=== PATIENT | female | born 1930 | race Asian ===

== ENCOUNTER 2017-01-03 18:46 | Emergency (ER) | payer MEDICARE, OTHER ==
[~2017-01-03] VITALS: Ht 152.4 cm; Wt 63.6 kg
[~2017-01-03 18:46] MED LIST: ACET-784 PO; ASPI-556 PO; CARV12 PO; DOCU100C98 PO; DOXE4VIA IV; EPOE3000 SQ; FOLI0.8T22 PO; GUAIFDM PO; LEVO250 PO; LEVO50TA11 PO; NITR.4 SL; SEVEC800 PO; XALA2.5OS OU
[2017-01-03] MEDS ORDERED: CINA90TA PO (19:05)
[2017-01-03] MEDS ORDERED: BIMA12.5OS OU (19:05)
[2017-01-03 20:09] LABS: BASOPHILS % (AUTO) 0.4 % (0.0-2.0); EOSINOPHILS % (AUTO) 1.2 % (1.0-6.0); HEMATOCRIT 36.1 % (36-46); HEMOGLOBIN 11.2 g/dL (12.0-16.0); LYMPHOCYTES # (AUTO) 1.5 K/uL (1.0-4.8); LYMPHOCYTES % (AUTO) 19.1 % (22.0-44.0); MEAN CORPUSCULAR HEMOGLOBIN 23.4 pg (26.0-34.0); MEAN CORPUSCULAR VOLUME 75 fL (80-100); MONOCYTES # (AUTO) 0.8 K/uL (0.1-1.0); MONOCYTES % (AUTO) 10.6 % (2.0-9.0); NEUTROPHILS # (AUTO) 5.4 K/uL (1.8-7.7); NEUTROPHILS % (AUTO) 68.7 % (40.0-70.0); PLATELET COUNT (AUTO) 176 K/uL (150-450); RED BLOOD CELL COUNT(AUTO) 4.78 MIL/uL (4.00-5.20); RED CELL DISTRIBUTION WIDTH 15.9 % (11.5-14.5); WHITE BLOOD COUNT (AUTO) 7.8 K/uL (4.5-11.0)
[2017-01-03 20:23] LABS: INR 1.1 (0.9-1.1); PROTHROMBIN TIME 11.2 SEC (9.4-11.6)
[2017-01-03 20:30] LABS: B-TYPE NATRIURETIC PEPTIDE 2730 pg/mL (0-100)
[2017-01-03 20:31] LABS: ANION GAP 9 mmol/L (8-16); CALCIUM, TOTAL 8.6 mg/dL (8.8-10.5); CARBON DIOXIDE 33 mmol/L (22-29); CHLORIDE 93 mmol/L (98-107); CREATININE 5.83 mg/dL (0.60-1.30); GLOMERULAR FILTR. RATE CALC 7 mL/min (>60); POTASSIUM 3.7 mmol/L (3.5-5.1); SODIUM SERUM 135 mmol/L (136-145); UREA NITROGEN, BLOOD 33 mg/dL (7-18)
[2017-01-03 20:37] LABS: ALANINE AMINOTRANSFERASE 16 U/L (12-78); ALBUMIN 3.4 g/dL (3.4-5.0); ASPARTATE AMINOTRANSFERASE 19 U/L (15-37); BILIRUBIN,TOTAL 0.6 mg/dL (0.1-1.0); CREATINE KINASE, TOTAL 43 U/L (26-192); TOTAL PROTEIN, SERUM 7.2 g/dL (6.4-8.2)
[2017-01-03 20:58] LABS: RBC MORPHOLOGY COMMENT ABNORMAL RBC MORPH
[2017-01-03] MEDS ORDERED: CefTRIAXone 1 GM/DEXTROSE 50 ML IV ONE (21:00)
[2017-01-03 21:37] VITALS: BP 155/78
== END 2017-01-03 21:49 | disposition home or self-care (01) ==
LOC: EMS 18:48
DX: J40 Bronchitis, not specified as acute or chronic (principal); N18.6 End stage renal disease; I12.0 Hypertensive chronic kidney disease with stage 5 chronic kidney disease or end stage renal disease; E78.00 Pure hypercholesterolemia, unspecified; Z99.2 Dependence on renal dialysis; Z79.82 Long term (current) use of aspirin
CPT/HCPCS: 36415; 71010; 80053; 82550; 83880; 84484; 85025; 85610; 85730; 87040; 93005; 96365; 99285; J0696; 99284

== ENCOUNTER → 2017-02-03 | Outpatient (CLI) | payer MEDICARE, OTHER ==
[~2017-02-03] VITALS: Ht 149.9 cm; Wt 56.5 kg
[~2017-02-03] MED LIST changes: +BIMA12.5OS OU; +CINA90TA PO; +FOLI0.8T2 PO; +HYDR25TA84 PO; -LEVO250 PO; -XALA2.5OS OU
[2017-02-03 11:05] VITALS: BP 140/79
== END | disposition home or self-care (01) ==
LOC: SRCNTR 10:47
PROVIDERS: ATTEND Internal Medicine Clinical Cardiac Electrophysiology
DX: Z45.018 Encounter for adjustment and management of other part of cardiac pacemaker (principal); I25.10 Atherosclerotic heart disease of native coronary artery without angina pectoris; I48.91 Unspecified atrial fibrillation; I12.9 Hypertensive chronic kidney disease with stage 1 through stage 4 chronic kidney disease, or unspecified chronic kidney disease; N18.9 Chronic kidney disease, unspecified
CPT/HCPCS: G0463

== ENCOUNTER 2017-02-19 08:07 | Day surgery (SDC) | payer MEDICARE, OTHER ==
[~2017-02-19] VITALS: Ht 152.4 cm; Wt 56.0 kg
[~2017-02-19 08:07] MED LIST changes: -FOLI0.8T2 PO; -GUAIFDM PO; +HYDR25 PO; -HYDR25TA84 PO; +SODIUM CHLORIDE 0.9% 1,000 ML IV ONE
[2017-02-19 09:05] LABS: BASOPHILS % (AUTO) 0.2 % (0.0-2.0); HEMATOCRIT 35.6 % (36-46); HEMOGLOBIN 11.3 g/dL (12.0-16.0); LYMPHOCYTES # (AUTO) 1.2 K/uL (1.0-4.8); LYMPHOCYTES % (AUTO) 25.2 % (22.0-44.0); MEAN CORPUSCULAR HEMOGLOBIN 24.1 pg (26.0-34.0); MEAN CORPUSCULAR HGB CONC 31.6 G/dL (31.0-37.0); MEAN CORPUSCULAR VOLUME 76 fL (80-100); MONOCYTES # (AUTO) 0.5 K/uL (0.1-1.0); MONOCYTES % (AUTO) 11.4 % (2.0-9.0); NEUTROPHILS % (AUTO) 62.2 % (40.0-70.0); PLATELET COUNT (AUTO) 167 K/uL (150-450); RED BLOOD CELL COUNT(AUTO) 4.67 MIL/uL (4.00-5.20); RED CELL DISTRIBUTION WIDTH 16.5 % (11.5-14.5); WHITE BLOOD COUNT (AUTO) 4.8 K/uL (4.5-11.0)
[2017-02-19 09:23] LABS: ALBUMIN 3.8 g/dL (3.4-5.0); BILIRUBIN,TOTAL 0.6 mg/dL (0.1-1.0); CALCIUM, TOTAL 9.1 mg/dL (8.8-10.5); CREATININE 5.03 mg/dL (0.60-1.30); MAGNESIUM 2.2 mg/dL (1.80-2.40); POTASSIUM 4.2 mmol/L (3.5-5.1); TOTAL PROTEIN, SERUM 7.3 g/dL (6.4-8.2)
[2017-02-19] MEDS ORDERED: SODIUM CHLORIDE 0.9% 1,000 ML IV ONE (09:30)
[2017-02-19] MEDS ORDERED: LIDOCAINE HCL/PF 1% 30 ML VIAL ONE (10:12)
[2017-02-19] MEDS ORDERED: SODIUM BICARBONATE 50 MEQ/50 ML VIAL ONE (10:13)
[2017-02-19 10:35] VITALS: BP 207/84
[2017-02-19] MEDS ORDERED: IOHEXOL 300 MG/ML 50 ML VIAL ONE (11:16)
[2017-02-19] MEDS ORDERED: LIDOCAINE 1% 30 ML/SOD BICARB 8.4% 4 ML SQ ONE (11:22)
[2017-02-19] MEDS ORDERED: BUPIVACAINE LIPOSOME/PF 1.3%-13.3MG/ML SUSPENSION 10 ML VIAL INJ ONE (11:30)
[2017-02-19] MEDS ORDERED: PROPOFOL 1% 20 ML VIAL IVP ONE (12:00)
[2017-02-19] MEDS ORDERED: FentaNYL CITRATE-PF 100 MCG/2 ML VIAL IVP ONE (12:00)
[2017-02-19] MEDS ORDERED: PHENYLEPHRINE HCL 10 MG/ML VIAL IVP ONE (12:00)
[2017-02-19] MEDS ORDERED: DiphenhydrAMINE HCL 50 MG/ML VIAL IVP ONE (12:00)
[2017-02-19 12:27] VITALS: BP 223/106
[2017-02-19] MEDS ORDERED: CeFAZolin 1 GM/DEXTROSE 50 ML IV ONE ×2 (14:26→15:00)
== END 2017-02-19 16:30 | disposition home or self-care (01) ==
LOC: CATHLAB 08:07
PROVIDERS: ATTEND Internal Medicine Clinical Cardiac Electrophysiology
DX: Z45.02 Encounter for adjustment and management of automatic implantable cardiac defibrillator (principal); I12.0 Hypertensive chronic kidney disease with stage 5 chronic kidney disease or end stage renal disease; N18.6 End stage renal disease; D63.1 Anemia in chronic kidney disease; H40.9 Unspecified glaucoma; Z98.890 Other specified postprocedural states; Z99.2 Dependence on renal dialysis; Z87.09 Personal history of other diseases of the respiratory system; Z98.42 Cataract extraction status, left eye; Z98.41 Cataract extraction status, right eye
CPT/HCPCS: 33263; 36415; 80053; 83735; 85025; 85610; 85730; 88300; 93005; 93640; C1721; J0690; J1200; J2370; J2704; J3010; J3490 ×2; J7030; 33240; Q9967

== ENCOUNTER → 2017-02-24 | Outpatient (CLI) | payer MEDICARE, OTHER ==
[~2017-02-24] VITALS: Ht 149.9 cm; Wt 56.0 kg
[~2017-02-24] MED LIST changes: -SODIUM CHLORIDE 0.9% 1,000 ML IV ONE
[2017-02-24 11:20] VITALS: BP 129/71
== END | disposition home or self-care (01) ==
LOC: SRCNTR 11:08
PROVIDERS: ATTEND Internal Medicine Clinical Cardiac Electrophysiology
DX: Z45.02 Encounter for adjustment and management of automatic implantable cardiac defibrillator (principal); I25.10 Atherosclerotic heart disease of native coronary artery without angina pectoris; I10 Essential (primary) hypertension; I48.91 Unspecified atrial fibrillation; F41.9 Anxiety disorder, unspecified; E78.00 Pure hypercholesterolemia, unspecified; N19 Unspecified kidney failure; Z95.810 Presence of automatic (implantable) cardiac defibrillator
CPT/HCPCS: G0463

== ENCOUNTER → 2017-03-03 | Outpatient (CLI) | payer MEDICARE, OTHER ==
[~2017-03-03] MED LIST changes: +FOLI0.8T2 PO
[2017-03-03 11:23] VITALS: BP 144/86
== END | disposition home or self-care (01) ==
LOC: SRCNTR 11:19
PROVIDERS: ATTEND Internal Medicine Clinical Cardiac Electrophysiology
DX: Z45.02 Encounter for adjustment and management of automatic implantable cardiac defibrillator (principal); I11.0 Hypertensive heart disease with heart failure; I50.9 Heart failure, unspecified; I48.91 Unspecified atrial fibrillation; N19 Unspecified kidney failure; E78.5 Hyperlipidemia, unspecified; T14.8 Other injury of unspecified body region; I25.10 Atherosclerotic heart disease of native coronary artery without angina pectoris; E78.00 Pure hypercholesterolemia, unspecified
CPT/HCPCS: G0463

== ENCOUNTER → 2017-03-10 | Outpatient (CLI) | payer MEDICARE, OTHER ==
[~2017-03-10] MED LIST changes: -HYDR25 PO; +HYDR25TA84 PO
[2017-03-10 11:48] VITALS: BP 114/57
== END | disposition home or self-care (01) ==
LOC: SRCNTR 11:20
PROVIDERS: ATTEND Internal Medicine Clinical Cardiac Electrophysiology
DX: Z45.02 Encounter for adjustment and management of automatic implantable cardiac defibrillator (principal); I11.0 Hypertensive heart disease with heart failure; I50.9 Heart failure, unspecified; I48.91 Unspecified atrial fibrillation; E78.5 Hyperlipidemia, unspecified; N19 Unspecified kidney failure; T14.8 Other injury of unspecified body region
CPT/HCPCS: G0463

== ENCOUNTER → 2017-03-19 | Outpatient (CLI) | payer MEDICARE, OTHER ==
[~2017-03-19] VITALS: Ht 149.9 cm; Wt 55.5 kg
[~2017-03-19] MED LIST changes: +ACET-2635 PO; +AMLO-511 PO; +AMLO1CAP5 PO; +AMLO5TAB66 PO; +AMOX500C2 PO; +ATOR10TA84 PO; +ATOR20TA86 PO; +BENA10TA3 PO; +BISA10SU61 PR; +BUME1TAB12 PO; +CALC-590 PO; +CALC500T62 PO; +CARV40CR PO; +CEPH250 PO; +CLON0.1T PO; +ESOM20CA31 PO; +FERR324T9 PO; +FOLI1CAP16 PO; +FOLI1TAB15 PO; +GUAIFDM PO; +HYDR-3965 PO; +HYDR-4173 PO; +LEVO250 PO; +LORA-366 PO; +LORA10TA60 PO; +MEGE40TA22 PO; +NITR0.4T SL; +OMEG1CAP20 PO; +OMEG300C3 PO; +PANT40TA25 PO; +PROMVCC120 PO; +SEVE400 GT; +WARF3TAB29 PO; +XALA2.5OS OU; +ZOLP10 PO; +[UNRECOGNIZED DRUG - CODE] IJ; +[UNRECOGNIZED DRUG - CODE] IV; +[UNRECOGNIZED DRUG - CODE] PO
[2017-03-19 14:52] VITALS: BP 161/88
== END | disposition home or self-care (01) ==
LOC: SRCNTR 14:45
PROVIDERS: ATTEND Internal Medicine Cardiovascular Disease
DX: I13.2 Hypertensive heart and chronic kidney disease with heart failure and with stage 5 chronic kidney disease, or end stage renal disease (principal); N18.6 End stage renal disease; I50.9 Heart failure, unspecified; I48.0 Paroxysmal atrial fibrillation; Z95.810 Presence of automatic (implantable) cardiac defibrillator
CPT/HCPCS: G0463

== ENCOUNTER → 2017-03-24 | Outpatient (CLI) | payer MEDICARE, OTHER ==
[~2017-03-24] VITALS: Ht 149.9 cm; Wt 55.5 kg
[~2017-03-24] MED LIST changes: -ACET-2635 PO; -AMLO-511 PO; -AMLO1CAP5 PO; -AMLO5TAB66 PO; -AMOX500C2 PO; -ATOR10TA84 PO; -ATOR20TA86 PO; -BENA10TA3 PO; -BISA10SU61 PR; -BUME1TAB12 PO; -CALC-590 PO; -CALC500T62 PO; -CARV40CR PO; -CEPH250 PO; -CLON0.1T PO; -ESOM20CA31 PO; -FERR324T9 PO; -FOLI1CAP16 PO; -FOLI1TAB15 PO; -GUAIFDM PO; -HYDR-3965 PO; -HYDR-4173 PO; -LEVO250 PO; -LORA-366 PO; -LORA10TA60 PO; -MEGE40TA22 PO; -NITR0.4T SL; -OMEG1CAP20 PO; -OMEG300C3 PO; -PANT40TA25 PO; -PROMVCC120 PO; -SEVE400 GT; -WARF3TAB29 PO; -XALA2.5OS OU; -ZOLP10 PO; -[UNRECOGNIZED DRUG - CODE] IJ; -[UNRECOGNIZED DRUG - CODE] IV; -[UNRECOGNIZED DRUG - CODE] PO
[2017-03-24 14:30] VITALS: BP 149/82
== END | disposition home or self-care (01) ==
LOC: SRCNTR 14:29
PROVIDERS: ATTEND Internal Medicine Clinical Cardiac Electrophysiology
DX: Z45.02 Encounter for adjustment and management of automatic implantable cardiac defibrillator (principal); I11.0 Hypertensive heart disease with heart failure; I50.9 Heart failure, unspecified; E78.5 Hyperlipidemia, unspecified; I48.91 Unspecified atrial fibrillation; E78.00 Pure hypercholesterolemia, unspecified; I25.10 Atherosclerotic heart disease of native coronary artery without angina pectoris; F41.9 Anxiety disorder, unspecified
CPT/HCPCS: G0463

== ENCOUNTER → 2017-03-31 | Outpatient (CLI) | payer MEDICARE, OTHER ==
[2017-03-31 14:50] VITALS: BP 151/81
== END | disposition home or self-care (01) ==
LOC: SRCNTR 14:32
PROVIDERS: ATTEND Internal Medicine Clinical Cardiac Electrophysiology
DX: Z45.02 Encounter for adjustment and management of automatic implantable cardiac defibrillator (principal)
CPT/HCPCS: G0463

== ENCOUNTER → 2017-04-07 | Outpatient (CLI) | payer MEDICARE, OTHER ==
[2017-04-07 15:22] VITALS: BP 147/81
== END | disposition home or self-care (01) ==
LOC: SRCNTR 14:45
PROVIDERS: ATTEND Internal Medicine Clinical Cardiac Electrophysiology
DX: Z45.02 Encounter for adjustment and management of automatic implantable cardiac defibrillator (principal)
CPT/HCPCS: G0463

== ENCOUNTER → 2017-04-23 | Outpatient (CLI) | payer MEDICARE, OTHER | END | disposition home or self-care (01) | LOC: RADPV 15:34 | PROVIDERS: ATTEND Orthopaedic Surgery | DX: M17.0 Bilateral primary osteoarthritis of knee (principal) ==

== ENCOUNTER → 2017-06-30 | Outpatient (CLI) | payer MEDICARE, OTHER ==
[~2017-06-30] MED LIST changes: +ACET1TAB12 PO; +BRIM15OS OU; +PROMVCC5L PO
[2017-06-30 15:25] VITALS: BP 139/82
== END | disposition home or self-care (01) ==
LOC: SRCNTR 14:58
PROVIDERS: ATTEND Internal Medicine Clinical Cardiac Electrophysiology
DX: Z45.02 Encounter for adjustment and management of automatic implantable cardiac defibrillator (principal); I10 Essential (primary) hypertension; I25.10 Atherosclerotic heart disease of native coronary artery without angina pectoris; N19 Unspecified kidney failure; I48.91 Unspecified atrial fibrillation; Z95.810 Presence of automatic (implantable) cardiac defibrillator
CPT/HCPCS: 93289; G0463; 93288

== ENCOUNTER → 2017-07-16 | Outpatient (CLI) | payer MEDICARE, OTHER ==
[~2017-07-16] VITALS: Ht 149.9 cm; Wt 54.0 kg
[2017-07-16 14:23] VITALS: BP 118/68
== END | disposition home or self-care (01) ==
LOC: SRCNTR 14:12
PROVIDERS: ATTEND Internal Medicine Cardiovascular Disease
DX: I25.10 Atherosclerotic heart disease of native coronary artery without angina pectoris (principal); I13.2 Hypertensive heart and chronic kidney disease with heart failure and with stage 5 chronic kidney disease, or end stage renal disease; I48.2 Chronic atrial fibrillation; J44.9 Chronic obstructive pulmonary disease, unspecified; I50.9 Heart failure, unspecified; N18.6 End stage renal disease; Z79.01 Long term (current) use of anticoagulants; Z79.899 Other long term (current) drug therapy; Z99.2 Dependence on renal dialysis; Z95.810 Presence of automatic (implantable) cardiac defibrillator
CPT/HCPCS: 93005; G0463

== ENCOUNTER → 2017-07-23 | Outpatient (CLI) | payer MEDICARE, OTHER ==
[~2017-07-23] MED LIST changes: -FOLI0.8T22 PO
== END | disposition home or self-care (01) ==
LOC: RADPV 13:06
PROVIDERS: ATTEND Internal Medicine Cardiovascular Disease
DX: I08.1 Rheumatic disorders of both mitral and tricuspid valves (principal); I51.7 Cardiomegaly; I70.0 Atherosclerosis of aorta; Z95.0 Presence of cardiac pacemaker
CPT/HCPCS: 93306

== ENCOUNTER → 2017-08-11 | Outpatient (CLI) | payer MEDICARE, OTHER ==
[2017-08-11 14:26] VITALS: BP 115/63
== END | disposition home or self-care (01) ==
LOC: SRCNTR 13:56
PROVIDERS: ATTEND Internal Medicine Cardiovascular Disease
DX: I12.0 Hypertensive chronic kidney disease with stage 5 chronic kidney disease or end stage renal disease (principal); N18.6 End stage renal disease; I25.10 Atherosclerotic heart disease of native coronary artery without angina pectoris; I34.0 Nonrheumatic mitral (valve) insufficiency; I48.2 Chronic atrial fibrillation; J44.9 Chronic obstructive pulmonary disease, unspecified; Z99.2 Dependence on renal dialysis; Z95.810 Presence of automatic (implantable) cardiac defibrillator; Z79.82 Long term (current) use of aspirin
CPT/HCPCS: G0463

== ENCOUNTER → 2017-10-13 | Outpatient (CLI) | payer MEDICARE, OTHER ==
[~2017-10-13] MED LIST changes: +DONE5TAB5 PO
[2017-10-13 14:01] VITALS: BP 117/95
== END | disposition home or self-care (01) ==
LOC: SRCNTR 13:53
PROVIDERS: ATTEND Internal Medicine Cardiovascular Disease
DX: I12.0 Hypertensive chronic kidney disease with stage 5 chronic kidney disease or end stage renal disease (principal); N18.6 End stage renal disease; J44.9 Chronic obstructive pulmonary disease, unspecified; I48.2 Chronic atrial fibrillation; I25.10 Atherosclerotic heart disease of native coronary artery without angina pectoris; I42.9 Cardiomyopathy, unspecified; Z79.82 Long term (current) use of aspirin; Z95.810 Presence of automatic (implantable) cardiac defibrillator; Z99.2 Dependence on renal dialysis
CPT/HCPCS: G0463

== ENCOUNTER → 2017-11-03 | Outpatient (CLI) | payer MEDICARE, OTHER ==
[~2017-11-03] MED LIST changes: +CARV6 PO; +LEVO100 PO; -PROMVCC5L PO; +ZOLP5 PO
[2017-11-03 14:54] VITALS: BP 97/59
== END | disposition home or self-care (01) ==
LOC: SRCNTR 14:37
PROVIDERS: ATTEND Internal Medicine Clinical Cardiac Electrophysiology
DX: Z45.02 Encounter for adjustment and management of automatic implantable cardiac defibrillator (principal); I25.10 Atherosclerotic heart disease of native coronary artery without angina pectoris; I10 Essential (primary) hypertension; N19 Unspecified kidney failure; I48.91 Unspecified atrial fibrillation; E78.00 Pure hypercholesterolemia, unspecified; F41.9 Anxiety disorder, unspecified; Z79.82 Long term (current) use of aspirin
CPT/HCPCS: G0463

== ENCOUNTER → 2017-12-10 | Outpatient (CLI) | payer MEDICARE, OTHER ==
[~2017-12-10] MED LIST changes: -CARV6 PO; -LEVO100 PO; -ZOLP5 PO
[2017-12-10 15:36] VITALS: BP 123/67
== END | disposition home or self-care (01) ==
LOC: SRCNTR 15:28
PROVIDERS: ATTEND Internal Medicine Cardiovascular Disease
DX: I12.0 Hypertensive chronic kidney disease with stage 5 chronic kidney disease or end stage renal disease (principal); N18.6 End stage renal disease; J44.9 Chronic obstructive pulmonary disease, unspecified; I48.2 Chronic atrial fibrillation; I25.10 Atherosclerotic heart disease of native coronary artery without angina pectoris; Z79.82 Long term (current) use of aspirin; Z99.2 Dependence on renal dialysis
CPT/HCPCS: G0463

== ENCOUNTER 2018-01-07 15:31 | Inpatient (IN) | payer MEDICARE, OTHER ==
[~2018-01-07] VITALS: Ht 149.9 cm; Wt 53.1 kg
[~2018-01-07 15:31] MED LIST changes: -CINA90TA PO; -SEVEC800 PO
[2018-01-07] MEDS ORDERED: ZOLP5 PO (15:37)
[2018-01-07] MEDS ORDERED: SEVEC800 PO (15:37)
[2018-01-07 16:30] LABS: BASOPHILS % (AUTO) 0.8 % (0.0-2.0); EOSINOPHILS % (AUTO) 1.6 % (1.0-6.0); HEMATOCRIT 36.5 % (36-46); HEMOGLOBIN 11.6 g/dL (12.0-16.0); LYMPHOCYTES # (AUTO) 1.2 K/uL (1.0-4.8); LYMPHOCYTES % (AUTO) 23.2 % (22.0-44.0); MEAN CORPUSCULAR HEMOGLOBIN 23.8 pg (26.0-34.0); MEAN CORPUSCULAR HGB CONC 31.8 G/dL (31.0-37.0); MEAN CORPUSCULAR VOLUME 75 fL (80-100); MONOCYTES # (AUTO) 0.5 K/uL (0.1-1.0); NEUTROPHILS # (AUTO) 3.2 K/uL (1.8-7.7); NEUTROPHILS % (AUTO) 63.4 % (40.0-70.0); PLATELET COUNT (AUTO) 104 K/uL (150-450); RED BLOOD CELL COUNT(AUTO) 4.87 MIL/uL (4.00-5.20); RED CELL DISTRIBUTION WIDTH 15.4 % (11.5-14.5)
[2018-01-07 16:39] LABS: INR 1.1 (0.9-1.1); PROTHROMBIN TIME 11.4 SEC (9.4-11.6)
[2018-01-07 16:43] LABS: LACTIC ACID 1.4 mmol/L (0.4-2.0)
[2018-01-07 16:46] LABS: ALBUMIN 3.1 g/dL (3.4-5.0); CALCIUM, TOTAL 9.7 mg/dL (8.8-10.5); CREATININE 4.55 mg/dL (0.60-1.30); POTASSIUM 3.7 mmol/L (3.5-5.1); TOTAL PROTEIN, SERUM 7.2 g/dL (6.4-8.2)
[2018-01-07 16:55] LABS: INFLUENZA TYPE A NEGATIVE FOR TYPE A (NEGATIVE); INFLUENZA TYPE B NEGATIVE FOR TYPE B (NEGATIVE)
[2018-01-07 17:28] LABS: APPEARANCE,URINE TURBID (CLEAR); GLUCOSE, URINE (UA) NEGATIVE (NEGATIVE); KETONES,URINE NEGATIVE (NEGATIVE); LEUKOCYTE ESTERASE ,URINE LARGE (NEGATIVE); NITRATE,URINE NEGATIVE (NEGATIVE); OCCULT BLOOD,URINE LARGE (NEGATIVE); PH,URINE 7.5 (5.0-8.0); PROTEIN,URINE SEE CONFIRM (NEGATIVE); UROBILINOGEN,URINE 0.2 mg/dL (<=1.0)
[2018-01-07 17:30] LABS: BILIRUBIN,URINE PRELIM. POSITIVE (NEGATIVE)
[2018-01-07 17:42] LABS: SULFOSALICYLIC ACID,URINE 4+ (Negative)
[2018-01-07 17:43] LABS: BACTERIA,URINE Moderate /HPF (None Seen); SQUAMOUS EPITHELIAL CELL,UR Few /LPF (None Seen); WBC,URINE Full Field /HPF (0-5)
[2018-01-07] MEDS ORDERED: CefTRIAXone SODIUM 1 GM in DEXTROSE 5%-WATER 10 ML IV ONE (17:45)
[2018-01-07] MEDS ORDERED: ACETAMINOPHEN 325 MG TABLET PO PRN ×2 (18:30→20:00)
[2018-01-07] MEDS ORDERED: ONDANSETRON HCL 4 MG/2 ML VIAL IVP PRN ×2 (18:30→20:15)
[2018-01-07] MEDS: ASPIRIN 81 MG EC TABLET PO SCH (20:00)
[2018-01-07] MEDS ORDERED: HydrALAZINE HCL 25 MG TABLET PO PRN (20:00)
[2018-01-07] MEDS ORDERED: 0.9% SODIUM CHLORIDE 10 ML SYRINGE IVP PRN (20:15)
[2018-01-07 20:22] VITALS: BP 117/72
[2018-01-07] MEDS: NITROGLYCERIN 0.4 MG SUBLINGUAL TABLET #25 SL PRN (20:51)
[2018-01-07] MEDS: DOCUSATE SODIUM 100 MG CAPSULE PO SCH (20:52)
[2018-01-07] MEDS: PANTOPRAZOLE SODIUM 40 MG/VIAL IVP SCH (20:52)
[2018-01-07] MEDS: CARVEDILOL 6.25 MG TABLET PO SCH (20:53)
[2018-01-07] MEDS: HEPARIN SODIUM,PORCINE 5,000 UNITS/ML VIAL SQ SCH (20:53)
[2018-01-07] MEDS: BIMATOPROST 0.01% 2.5 ML OPHTHALMIC SOLUTION OU SCH (21:44)
[2018-01-07] MEDS: DONEPEZIL HCL 5 MG TABLET PO SCH (21:44)
[2018-01-07] MEDS: BRIMONIDINE TARTRATE 0.1% 5 ML OPHTHALMIC SOLUTION OU SCH (21:44)
[2018-01-08] VITALS (7 sets, daily range): BP systolic 94–114; BP diastolic 57–69
[2018-01-08 06:24] LABS: BASOPHILS % (AUTO) 0.7 % (0.0-2.0); EOSINOPHILS % (AUTO) 2.4 % (1.0-6.0); HEMATOCRIT 33.3 % (36-46); HEMOGLOBIN 10.6 g/dL (12.0-16.0); LYMPHOCYTES # (AUTO) 1.2 K/uL (1.0-4.8); LYMPHOCYTES % (AUTO) 27.6 % (22.0-44.0); MEAN CORPUSCULAR HEMOGLOBIN 23.9 pg (26.0-34.0); MEAN CORPUSCULAR HGB CONC 31.8 G/dL (31.0-37.0); MEAN CORPUSCULAR VOLUME 75 fL (80-100); MONOCYTES # (AUTO) 0.6 K/uL (0.1-1.0); NEUTROPHILS # (AUTO) 2.5 K/uL (1.8-7.7); NEUTROPHILS % (AUTO) 56.3 % (40.0-70.0); PLATELET COUNT (AUTO) 95 K/uL (150-450); RED BLOOD CELL COUNT(AUTO) 4.42 MIL/uL (4.00-5.20); RED CELL DISTRIBUTION WIDTH 14.9 % (11.5-14.5)
[2018-01-08 06:52] LABS: CALCIUM, TOTAL 9.4 mg/dL (8.8-10.5); CREATININE 5.23 mg/dL (0.60-1.30); MAGNESIUM 2.1 mg/dL (1.80-2.40); POTASSIUM 3.8 mmol/L (3.5-5.1)
[2018-01-08] MEDS: LEVOTHYROXINE SODIUM 50 MCG TABLET PO SCH (06:53)
[2018-01-08] MEDS: HEPARIN SODIUM,PORCINE 5,000 UNITS/ML VIAL SQ SCH ×2 (08:05→20:17)
[2018-01-08] MEDS: PANTOPRAZOLE SODIUM 40 MG/VIAL IVP SCH (08:05)
[2018-01-08] MEDS: SEVELAMER CARBONATE 800 MG TABLET PO SCH ×3 (08:05→18:00)
[2018-01-08] MEDS: BRIMONIDINE TARTRATE 0.1% 5 ML OPHTHALMIC SOLUTION OU SCH ×2 (08:06→20:18)
[2018-01-08] MEDS: DOCUSATE SODIUM 100 MG CAPSULE PO SCH ×2 (08:06→20:17)
[2018-01-08] MEDS: ASPIRIN 81 MG EC TABLET PO SCH (08:07)
[2018-01-08] MEDS: CARVEDILOL 6.25 MG TABLET PO SCH ×2 (09:00→20:18)
[2018-01-08] MEDS ORDERED: SODIUM CHLORIDE 0.9% 2,000 ML IV ONE (11:58)
[2018-01-08] MEDS ORDERED: CARV6 PO (11:59)
[2018-01-08] MEDS ORDERED: LEVO100 PO (11:59)
[2018-01-08] MEDS ORDERED: *CLINICAL-RX DOSING [ENTER DRUG IN COMMENTS] CLINICAL ONE (12:15)
[2018-01-08] MEDS ORDERED: SODIUM CHLORIDE 0.9% 100 ML ONE (15:42)
[2018-01-08] MEDS: AZITHROMYCIN 500 MG/NS 250 ML IV SCH (15:48)
[2018-01-08] MEDS: DONEPEZIL HCL 5 MG TABLET PO SCH (17:04)
[2018-01-08] MEDS: PROMETHAZINE HCL/CODEINE 6.25-10MG/5ML SYRUP UDCUP PO PRN (17:42)
[2018-01-08] MEDS ORDERED: CefTRIAXone SODIUM 1 GM in DEXTROSE 5%-WATER 10 ML IV SCH (18:00)
[2018-01-08] MEDS: BIMATOPROST 0.01% 2.5 ML OPHTHALMIC SOLUTION OU SCH (20:18)
[2018-01-09] MEDS: ZOLPIDEM TARTRATE 5 MG TABLET PO PRN (00:09)
[2018-01-09] MEDS: PROMETHAZINE HCL/CODEINE 6.25-10MG/5ML SYRUP UDCUP PO PRN ×3 (02:16→22:25)
[2018-01-09 04:19] VITALS: BP 104/56
[2018-01-09] MEDS: LEVOTHYROXINE SODIUM 50 MCG TABLET PO SCH (07:18)
[2018-01-09 07:19] VITALS: BP 120/75
[2018-01-09] MEDS: PANTOPRAZOLE SODIUM 40 MG/VIAL IVP SCH (08:21)
[2018-01-09] MEDS: BRIMONIDINE TARTRATE 0.1% 5 ML OPHTHALMIC SOLUTION OU SCH ×2 (08:21→20:08)
[2018-01-09] MEDS: SEVELAMER CARBONATE 800 MG TABLET PO SCH ×3 (08:21→18:13)
[2018-01-09] MEDS: HEPARIN SODIUM,PORCINE 5,000 UNITS/ML VIAL SQ SCH ×2 (08:22→20:08)
[2018-01-09] MEDS: CARVEDILOL 6.25 MG TABLET PO SCH ×2 (08:22→20:07)
[2018-01-09] MEDS: ASPIRIN 81 MG EC TABLET PO SCH (08:22)
[2018-01-09] MEDS: DOCUSATE SODIUM 100 MG CAPSULE PO SCH ×2 (08:22→20:07)
[2018-01-09 11:09] VITALS: BP 127/54
[2018-01-09] MEDS: AZITHROMYCIN 500 MG/NS 250 ML IV SCH (13:42)
[2018-01-09] MEDS ORDERED: PIPERACILLIN SODIUM/TAZOBACTAM 2.25 GM in DEXTROSE 5%-WATER 50 ML IV SCH (15:00)
[2018-01-09] MEDS: TOBRAMYCIN SULFATE 80 MG in DEXTROSE 5%-WATER 50 ML IV SCH (15:50)
[2018-01-09 16:21] VITALS: BP 119/75
[2018-01-09] MEDS: DONEPEZIL HCL 5 MG TABLET PO SCH (18:14)
[2018-01-09 19:33] VITALS: BP 115/52
[2018-01-09] MEDS: BIMATOPROST 0.01% 2.5 ML OPHTHALMIC SOLUTION OU SCH (20:08)
[2018-01-10 00:37] VITALS: BP 108/59
[2018-01-10] MEDS: ZOLPIDEM TARTRATE 5 MG TABLET PO PRN (01:20)
[2018-01-10 03:26] VITALS: BP 134/77
[2018-01-10] MEDS: LEVOTHYROXINE SODIUM 50 MCG TABLET PO SCH (05:22)
[2018-01-10 07:57] VITALS: BP 118/81
[2018-01-10] MEDS: HEPARIN SODIUM,PORCINE 5,000 UNITS/ML VIAL SQ SCH ×2 (09:02→21:36)
[2018-01-10] MEDS: CARVEDILOL 6.25 MG TABLET PO SCH ×2 (09:02→21:00)
[2018-01-10] MEDS: SEVELAMER CARBONATE 800 MG TABLET PO SCH ×3 (09:02→18:43)
[2018-01-10] MEDS: ASPIRIN 81 MG EC TABLET PO SCH (09:03)
[2018-01-10] MEDS: DOCUSATE SODIUM 100 MG CAPSULE PO SCH ×2 (09:03→21:36)
[2018-01-10] MEDS: PANTOPRAZOLE SODIUM 40 MG/VIAL IVP SCH (09:03)
[2018-01-10] MEDS: BRIMONIDINE TARTRATE 0.1% 5 ML OPHTHALMIC SOLUTION OU SCH ×2 (09:04→21:35)
[2018-01-10 10:51] VITALS: BP 124/68
[2018-01-10 15:42] VITALS: BP 110/68
[2018-01-10] MEDS ORDERED: SODIUM CHLORIDE 0.9% 2,000 ML IV ONE (16:14)
[2018-01-10 17:33] LABS: BASOPHILS % (AUTO) 0.6 % (0.0-2.0); EOSINOPHILS % (AUTO) 1.5 % (1.0-6.0); HEMATOCRIT 36.2 % (36-46); HEMOGLOBIN 11.4 g/dL (12.0-16.0); LYMPHOCYTES # (AUTO) 1.4 K/uL (1.0-4.8); LYMPHOCYTES % (AUTO) 23.2 % (22.0-44.0); MEAN CORPUSCULAR HEMOGLOBIN 23.9 pg (26.0-34.0); MEAN CORPUSCULAR HGB CONC 31.5 G/dL (31.0-37.0); MEAN CORPUSCULAR VOLUME 76 fL (80-100); MONOCYTES # (AUTO) 0.9 K/uL (0.1-1.0); MONOCYTES % (AUTO) 14.2 % (2.0-9.0); NEUTROPHILS # (AUTO) 3.8 K/uL (1.8-7.7); NEUTROPHILS % (AUTO) 60.5 % (40.0-70.0); RED BLOOD CELL COUNT(AUTO) 4.77 MIL/uL (4.00-5.20); RED CELL DISTRIBUTION WIDTH 15.8 % (11.5-14.5)
[2018-01-10 17:58] LABS: CALCIUM, TOTAL 9.6 mg/dL (8.8-10.5); CREATININE 5.9 mg/dL (0.60-1.30); POTASSIUM 5.2 mmol/L (3.5-5.1)
[2018-01-10 18:18] LABS: PLATELET COUNT (AUTO) 85 K/uL (150-450)
[2018-01-10] MEDS: DONEPEZIL HCL 5 MG TABLET PO SCH (18:43)
[2018-01-10 21:13] VITALS: BP 113/60
[2018-01-10] MEDS: BIMATOPROST 0.01% 2.5 ML OPHTHALMIC SOLUTION OU SCH (21:36)
[2018-01-10] MEDS: MIRTAZAPINE 15 MG TABLET PO SCH (21:36)
[2018-01-11 00:37] VITALS: BP 114/62
[2018-01-11 04:55] VITALS: BP 135/67
[2018-01-11] MEDS: LEVOTHYROXINE SODIUM 50 MCG TABLET PO SCH (05:36)
[2018-01-11 07:18] VITALS: BP 133/72
[2018-01-11] MEDS: SEVELAMER CARBONATE 800 MG TABLET PO SCH ×3 (08:57→18:40)
[2018-01-11] MEDS: LOSARTAN POTASSIUM 25 MG TABLET PO SCH ×2 (09:00→21:00)
[2018-01-11] MEDS: CARVEDILOL 6.25 MG TABLET PO SCH ×2 (09:00→21:00)
[2018-01-11] MEDS ORDERED: EPOETIN ALFA 10,000 UNITS/ML VIAL SQ SCH (09:00)
[2018-01-11] MEDS: PANTOPRAZOLE SODIUM 40 MG/VIAL IVP SCH (09:01)
[2018-01-11] MEDS: DOCUSATE SODIUM 100 MG CAPSULE PO SCH ×2 (09:01→20:55)
[2018-01-11] MEDS: ASPIRIN 81 MG EC TABLET PO SCH (09:01)
[2018-01-11] MEDS: HEPARIN SODIUM,PORCINE 5,000 UNITS/ML VIAL SQ SCH ×2 (09:02→21:52)
[2018-01-11] MEDS: BRIMONIDINE TARTRATE 0.1% 5 ML OPHTHALMIC SOLUTION OU SCH ×2 (09:24→20:55)
[2018-01-11 11:42] VITALS: BP 126/68
[2018-01-11 15:21] VITALS: BP 98/63
[2018-01-11] MEDS: DONEPEZIL HCL 5 MG TABLET PO SCH (18:40)
[2018-01-11 20:27] VITALS: BP 128/77
[2018-01-11] MEDS: NITROGLYCERIN 0.4 MG SUBLINGUAL TABLET #25 SL PRN ×2 (20:47→21:02)
[2018-01-11] MEDS: TOBRAMYCIN SULFATE 80 MG in DEXTROSE 5%-WATER 50 ML IV SCH (20:55)
[2018-01-11] MEDS: MIRTAZAPINE 15 MG TABLET PO SCH (20:55)
[2018-01-11] MEDS: BIMATOPROST 0.01% 2.5 ML OPHTHALMIC SOLUTION OU SCH (20:56)
[2018-01-11] MEDS: OXYGEN THERAPY IH SCH (21:02)
[2018-01-11] MEDS: PROMETHAZINE HCL/CODEINE 6.25-10MG/5ML SYRUP UDCUP PO PRN (21:50)
[2018-01-12 00:35] VITALS: BP 120/73
[2018-01-12 04:41] VITALS: BP 128/73
[2018-01-12] MEDS: LEVOTHYROXINE SODIUM 50 MCG TABLET PO SCH (05:17)
[2018-01-12 06:11] LABS: BASOPHILS % (AUTO) 0.6 % (0.0-2.0); EOSINOPHILS % (AUTO) 2.2 % (1.0-6.0); HEMATOCRIT 33.1 % (36-46); HEMOGLOBIN 10.6 g/dL (12.0-16.0); LYMPHOCYTES % (AUTO) 18.5 % (22.0-44.0); MEAN CORPUSCULAR HEMOGLOBIN 24.2 pg (26.0-34.0); MEAN CORPUSCULAR VOLUME 76 fL (80-100); MONOCYTES # (AUTO) 0.8 K/uL (0.1-1.0); MONOCYTES % (AUTO) 13.8 % (2.0-9.0); NEUTROPHILS # (AUTO) 3.6 K/uL (1.8-7.7); NEUTROPHILS % (AUTO) 64.9 % (40.0-70.0); PLATELET COUNT (AUTO) 85 K/uL (150-450); RED BLOOD CELL COUNT(AUTO) 4.37 MIL/uL (4.00-5.20)
[2018-01-12 07:02] LABS: ALBUMIN 2.9 g/dL (3.4-5.0); BILIRUBIN,TOTAL 0.8 mg/dL (0.1-1.0); CALCIUM, TOTAL 9.2 mg/dL (8.8-10.5); CREATININE 3.15 mg/dL (0.60-1.30); MAGNESIUM 1.5 mg/dL (1.80-2.40); POTASSIUM 4.1 mmol/L (3.5-5.1); TOTAL PROTEIN, SERUM 6.7 g/dL (6.4-8.2)
[2018-01-12 07:15] VITALS: BP 116/60
[2018-01-12] MEDS: OXYGEN THERAPY IH SCH (08:04)
[2018-01-12] MEDS: SEVELAMER CARBONATE 800 MG TABLET PO SCH ×2 (08:04→12:39)
[2018-01-12] MEDS: PANTOPRAZOLE SODIUM 40 MG/VIAL IVP SCH (08:04)
[2018-01-12] MEDS: CARVEDILOL 6.25 MG TABLET PO SCH (08:04)
[2018-01-12] MEDS: HEPARIN SODIUM,PORCINE 5,000 UNITS/ML VIAL SQ SCH (08:05)
[2018-01-12] MEDS: LOSARTAN POTASSIUM 25 MG TABLET PO SCH (08:05)
[2018-01-12] MEDS: DOCUSATE SODIUM 100 MG CAPSULE PO SCH (08:05)
[2018-01-12] MEDS: BRIMONIDINE TARTRATE 0.1% 5 ML OPHTHALMIC SOLUTION OU SCH (08:10)
[2018-01-12] MEDS: ASPIRIN 81 MG EC TABLET PO SCH (08:12)
[2018-01-12] MEDS ORDERED: MANNITOL 25%-12.5 GM/50 ML VIAL IVP PRN (11:15)
[2018-01-12 11:16] VITALS: BP 122/74
[2018-01-12 15:06] VITALS: BP 124/66
== END 2018-01-12 18:30 | DRG 871 ==
LOC: EMS 15:32 → 5N 18:53
PROVIDERS: ADMIT Internal Medicine; ATTEND Internal Medicine
PROC: 5A1D70Z Performance of Urinary Filtration, Intermittent, Less than 6 Hours Per Day (ICD-10-PCS; principal; 2018-01-08)
PROC: 5A1D70Z Performance of Urinary Filtration, Intermittent, Less than 6 Hours Per Day (ICD-10-PCS; 2018-01-10)
PROC: 5A1D70Z Performance of Urinary Filtration, Intermittent, Less than 6 Hours Per Day (ICD-10-PCS; 2018-01-11)
PROC: 5A1D70Z Performance of Urinary Filtration, Intermittent, Less than 6 Hours Per Day (ICD-10-PCS; 2018-01-12)
DX: A41.9 Sepsis, unspecified organism (principal); N18.6 End stage renal disease; I13.2 Hypertensive heart and chronic kidney disease with heart failure and with stage 5 chronic kidney disease, or end stage renal disease; E11.22 Type 2 diabetes mellitus with diabetic chronic kidney disease; I42.9 Cardiomyopathy, unspecified; I48.91 Unspecified atrial fibrillation; I50.43 Acute on chronic combined systolic (congestive) and diastolic (congestive) heart failure; N39.0 Urinary tract infection, site not specified; N25.81 Secondary hyperparathyroidism of renal origin; F41.9 Anxiety disorder, unspecified; I25.10 Atherosclerotic heart disease of native coronary artery without angina pectoris; E78.00 Pure hypercholesterolemia, unspecified; E03.9 Hypothyroidism, unspecified; D50.9 Iron deficiency anemia, unspecified; F03.90 Unspecified dementia, unspecified severity, without behavioral disturbance, psychotic disturbance, mood disturbance, and anxiety; G89.4 Chronic pain syndrome; I70.0 Atherosclerosis of aorta; J40 Bronchitis, not specified as acute or chronic; R62.7 Adult failure to thrive; B96.20 Unspecified Escherichia coli [E. coli] as the cause of diseases classified elsewhere; Z99.2 Dependence on renal dialysis; Z95.810 Presence of automatic (implantable) cardiac defibrillator; Z79.82 Long term (current) use of aspirin; Z79.899 Other long term (current) drug therapy; Z86.73 Personal history of transient ischemic attack (TIA), and cerebral infarction without residual deficits; Z82.49 Family history of ischemic heart disease and other diseases of the circulatory system
CPT/HCPCS: 51701; 71250; 83605; 83735; 87081; 87086; 87340; 87804; 90935; 93005; 93306; 93925; 96374; 97162; 97166; 99285; C9113; J0456; J0696; J0885; J1644; J2543; J3260; J7030; J7050; J7060

== ENCOUNTER → 2018-04-15 | Outpatient (CLI) | payer MEDICARE, OTHER ==
[~2018-04-15] MED LIST changes: +ATOR40TA28 PO; -CARV12 PO; +CARV6 PO; +LEVO100 PO; -LEVO50TA11 PO; +RAME8TAB8 PO; +SEVEC800 PO; +ZOLP5 PO
[2018-04-15 14:26] VITALS: BP 113/62
== END | disposition home or self-care (01) ==
LOC: SRCNTR 14:15
PROVIDERS: ATTEND Internal Medicine Cardiovascular Disease
DX: I13.0 Hypertensive heart and chronic kidney disease with heart failure and stage 1 through stage 4 chronic kidney disease, or unspecified chronic kidney disease (principal); N18.9 Chronic kidney disease, unspecified; I50.9 Heart failure, unspecified; I25.10 Atherosclerotic heart disease of native coronary artery without angina pectoris; E78.00 Pure hypercholesterolemia, unspecified; D64.9 Anemia, unspecified; F03.90 Unspecified dementia, unspecified severity, without behavioral disturbance, psychotic disturbance, mood disturbance, and anxiety; F41.9 Anxiety disorder, unspecified; E03.9 Hypothyroidism, unspecified; Z95.0 Presence of cardiac pacemaker
CPT/HCPCS: G0463

== ENCOUNTER → 2018-04-20 | Outpatient (CLI) | payer MEDICARE, OTHER ==
[~2018-04-20] MED LIST changes: -BIMA12.5OS OU; -BRIM15OS OU; -CARV6 PO; -DONE5TAB5 PO; -DOXE4VIA IV; -HYDR25TA84 PO; -SEVEC800 PO; -ZOLP5 PO
== END | disposition home or self-care (01) ==
LOC: RADPV 13:53
PROVIDERS: ATTEND Internal Medicine Cardiovascular Disease
DX: I08.3 Combined rheumatic disorders of mitral, aortic and tricuspid valves (principal); I31.3 Pericardial effusion (noninflammatory); I97.131 Postprocedural heart failure following other surgery; I13.2 Hypertensive heart and chronic kidney disease with heart failure and with stage 5 chronic kidney disease, or end stage renal disease; E11.22 Type 2 diabetes mellitus with diabetic chronic kidney disease; N18.5 Chronic kidney disease, stage 5; I50.9 Heart failure, unspecified; E78.5 Hyperlipidemia, unspecified; E78.00 Pure hypercholesterolemia, unspecified; F41.9 Anxiety disorder, unspecified; I48.91 Unspecified atrial fibrillation; E03.9 Hypothyroidism, unspecified; J44.9 Chronic obstructive pulmonary disease, unspecified; K21.9 Gastro-esophageal reflux disease without esophagitis
CPT/HCPCS: 93306

== ENCOUNTER → 2018-05-27 | Outpatient (CLI) | payer MEDICARE, OTHER ==
[~2018-05-27] MED LIST changes: -ACET1TAB12 PO; +BRIM15OS; +FAMO20 PO; +GUAIF10 PO; +MIDO5TAB23 PO; +SEVE800PW PO; +XALA2.5OS
== END | disposition home or self-care (01) ==
LOC: LABPV 11:04
PROVIDERS: ATTEND Physical Medicine & Rehabilitation
DX: E03.9 Hypothyroidism, unspecified (principal); I13.2 Hypertensive heart and chronic kidney disease with heart failure and with stage 5 chronic kidney disease, or end stage renal disease; N18.6 End stage renal disease; I50.9 Heart failure, unspecified; I25.10 Atherosclerotic heart disease of native coronary artery without angina pectoris; E78.00 Pure hypercholesterolemia, unspecified; Z99.2 Dependence on renal dialysis
CPT/HCPCS: 84443